=== PATIENT | female | born 1995 | race Two or more races ===

== ENCOUNTER 2017-09-26 20:05 | Emergency (ER) | payer SELFPAY ==
[~2017-09-26] VITALS: Ht 175.3 cm; Wt 56.2 kg
[2017-09-26] MEDS ORDERED: TYLENOL EXTRA500 MG ORAL (20:40)
[2017-09-26 20:57] VITALS: BP 113/73
--- NOTE | 2017-09-27 15:23 | Emergency Room Report ---
History of Present Illness General Chief Complaint: Pain Source: Patient Present Illness HPI 22-year-old female presents ED for evaluation. Patient states that she was accidentally kneed in the nose today while playing. Notes pain and swelling to her nose. Denies any other injuries. Pain as throbbing, 8 out 10, nonradiating. Denies any bleeding from her nose. No other aggravating relieving factors. Denies any other associated symptom Patient History Past Medical History: none Past Surgical History: none Pertinent Family History: none Social History: Denies: smoking, alcohol use, drug use Now: No Immunizations: UTD Reviewed Nursing Documentation: PMH: Agreed, PSxH: Agreed Nursing Documentation-PMH Past Medical History: No Stated History Review of Systems All Other Systems: negative except mentioned in HPI Physical Exam Vital Signs Date Time Temp Pulse Resp B/P (MAP) Pulse Ox O2 Delivery O2 Flow Rate FiO2 09/26/17 20:18 98.7 69 18 113/73 100 Room Air 98.8 Sp02 EP Interpretation: reviewed, normal General Appearance: no apparent distress, alert, GCS 15, non-toxic Head: normocephalic, atraumatic Eyes: bilateral eye normal inspection, bilateral eye PERRL ENT: hearing grossly normal, normal pharynx, no angioedema, normal voice, other - swelling to nose. no septal hematoma. no deformity Neck: full range of motion, supple/symm/no masses Respiratory: chest non-tender, lungs clear, normal breath sounds, speaking full sentences Cardiovascular #1: regular rate, rhythm, no edema Cardiovascular #2: 2+ carotid (R), 2+ carotid (L), 2+ radial (R), 2+ radial (L) , 2+ dorsalis pedis (R), 2+ dorsalis pedis (L) Gastrointestinal: normal bowel sounds, non tender, soft, non-distended, no guarding, no rebound Rectal: deferred Genitourinary: normal inspection, no CVA tenderness Musculoskeletal: back normal, gait/station normal, normal range of motion, non- tender Neurologic: alert, oriented x3, responsive, motor strength/tone normal, sensory intact, speech normal Psychiatric: judgement/insight normal, memory normal, mood/affect normal, no suicidal/homicidal ideation Reflexes: 3+ bicep (R), 3+ bicep (L), 3+ tricep (R), 3+ tricep (L), 3+ knee (R) , 3+ knee (L) Skin: normal color, no rash, warm/dry, well hydrated Lymphatic: no adenopathy Medical Decision Making Diagnostic Impression: Primary Impression: Nose injury Qualified Codes: S09.92XA - Unspecified injury of nose, initial encounter ER Course Hospital Course 22-year-old female presents ED with pain and swelling to her nose status post injury today Differential diagnoses include: Fracture, dislocation, sprain, contusion, bursitis Clinical course Patient placed on stretcher. After initial history, physical exam reveals a female in no acute distress. On exam there is some mild swelling to the bridge of the nose. No bruising. No deformity. No septal hematoma. No evidence of bleeding Status findings with the patient. Clinically patient could have a broken nose however there is no immediate intervention given that there is no deformity, no airway compromise or no septal hematoma I discussed the option of imaging with the patient but would not change management manager. Patient declined imaging. Agreed to be discharged Diagnosis - nose injury stable and discharged to home with prescription for Tylenol. apply ice. Followup with PMD. Return to ED if symptoms recur or worsen Last Vital Signs Date Time Temp Pulse Resp B/P (MAP) Pulse Ox O2 Delivery O2 Flow Rate FiO2 09/26/17 20:18 98.7 69 18 113/73 100 Room Air 98.8 Status: improved Disposition: HOME, SELF-CARE Condition: Stable Scripts Acetaminophen* (TYLENOL EXTRA STRENGTH*) 500 Mg Tablet 500 MG ORAL Q8H Y for Prn Headache/Temp > 101, #30 TAB 0 Refills Prov: FABIOLA ELLIS M.D. 09/26/17 Referrals: NOT CHOSEN IPA/,REFERRING (PCP) Patient Instructions: Nasal Fracture, [id number] FABIOLA ELLIS M.D. Sep 27, 2017 15:23
== END 2017-09-26 20:57 | disposition home or self-care (01) ==
LOC: EMR 20:50
DX: S09.8XXA Other specified injuries of head, initial encounter (principal); W51.XXXA Accidental striking against or bumped into by another person, initial encounter; Y92.9 Unspecified place or not applicable
CPT/HCPCS: 99283